=== PATIENT | female | born 1985 | race Native Hawaiian/Other Pacific Islander ===

== ENCOUNTER 2025-08-21 20:25 | Emergency (ER) | payer BC, SELFPAY ==
[2025-08-21 20:28] VITALS: BP 145/84
--- NOTE | 2025-08-21 22:37 | ED.GENMED ---
History of Present Illness
General
Chief Complaint: Allergic Reaction
Source: patient
Time Seen by Provider: 08/21/25 22:17
Nursing documentation reviewed up to this point in time: agreed with
History of Present Illness
History of Present Illness:
Note:
CHIEF COMPLAINT(S)
Rash and itching following a suspected insect bite.
HISTORY OF PRESENT ILLNESS
The patient is a 40-year-old female with a history of pre-diabetes who presented with a rash that began under her chin after she suspected an insect bite. The rash developed approximately two hours after attending her daughters birthday libertarian and
progressed to become red and itchy, spreading outward towards the lateral areas. The patient attempted to shower, thinking it might help, and took an oral dose of diphenhydramine 25 mg at 7:45 PM, but only mild improvement in symptoms was noted.
Upon returning from the libertarian, the rash appeared reduced but still visibly present and uncomfortable. She noted no recent changes in detergents or personal care products and reported being unsure of any specific allergen exposure. The patients
did use bleach to clean their shower, but she does not suspect that to be the cause.
SOCIAL DETERMINANTS AFFECTING HEALTH
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 No other significant social determinants affecting health were discussed.
PAST MEDICAL HISTORY
Diabetes mellitus, type unspecified.
REVIEW OF SYSTEMS
- Integumentary: Rash and itching noted on the skin, primarily under the chin and spreading laterally.
- ENT
No changes in detergent or personal care products; potential exposure to bleach fumes in the household.
PHYSICAL EXAM
General: Alert, no acute distress.
Skin: Erythematous patches noted on abdomen and torso, urticarial in appearance.
Head: Normocephalic, atraumatic.
Neck: Trachea midline, no lymphadenopathy noted.
Eye, Ears, Nose, Mouth, and Throat: Oral mucosa moist.
Cardiovascular: Normal peripheral perfusion, no edema.
Respiratory: Respirations are non-labored.
Gastrointestinal: Abdomen nondistended.
Back: Normal range of motion, normal alignment.
Musculoskeletal: Normal ROM, normal strength.
Neurological: Alert and oriented to person, place, time, and situation, no focal neurological deficit observed.
Psychiatric: Cooperative, appropriate mood & affect.
PROBLEM LIST
Acute:
- Rash and itching from a suspected insect bite.
Chronic:
- Pre-Diabetes
PLAN
- Administer another dose of diphenhydramine.
- Administer a dose of corticosteroids.
- Discharge with a prescription for prednisone and an epinephrine auto-injector for potential future allergic reactions.
- Monitor for symptom resolution and possible identification of the allergen.
DIFFERENTIAL DIAGNOSIS
The Differential Diagnosis includes, in no particular order and is not limited to:
1. Allergic reaction to insect bite
2. Contact dermatitis
3. Urticaria
4. Anaphylaxis (mild)
5. Dermatologic manifestation of a systemic condition
6. Drug reaction
7. Idiopathic angioedema
8. Atopic dermatitis
9. Chemical burn (e.g., from bleach)
10. Viral exanthem
Disposition:
SUMMARY OF ENCOUNTER
A 40-year-old female presented with an allergic reaction of unknown origin, possibly due to an insect bite. The symptoms included a rash and itching under the chin, spreading outward to lateral areas. The patient reported slight improvement after
taking diphenhydramine at home. Upon evaluation in the emergency department, she showed significant improvement.
DISPOSITION
The patient will be discharged home.
ASSESSMENT
The patient presented with a likely allergic reaction of unknown origin, potentially related to an insect bite.
PLAN
Administered diphenhydramine for symptomatic relief in the emergency department. Prescribed prednisone and an epinephrine auto-injector for potential future allergic reactions. The patient was advised to monitor for any recurrent or worsening
symptoms and to identify any potential allergens.
MEDICATION RECONCILIATION
- Administered diphenhydramine in the emergency department.
- Prescribed prednisone for follow-up treatment.
- Provided an epinephrine auto-injector for emergency use in case of future allergic episodes.
MEDICAL DECISION MAKING
-Number and Complexity of Problems Addressed: Chronic conditions affecting care include pre-diabetes. Differential diagnosis considered includes allergic reaction to insect bite, contact dermatitis, urticaria, anaphylaxis (mild), idiopathic
angioedema, atopic dermatitis, chemical irritation, viral exanthem.
-Data:
Category 2:
Clinical information included reviewing the current presentation, symptom resolution after diphenhydramine, and not attributing symptoms to recent chemical exposure (bleach).
-Risk:
Prescription medication was prescribed, including prednisone and an epinephrine auto-injector, emphasizing the need for monitoring potential allergies.
DIAGNOSIS
- Allergic reaction, unspecified (ICD-10: T78.40XA).
- Contact dermatitis due to unspecified cause (ICD-10: L23.9).
- Pre-diabetes (ICD-10: R73.03).
Phy Exam
Physical Exam
Physical Exam:
.
Course
Orders/Labs/Results
Orders:
Orders
08/21/25 22:35
Dexamethasone Pf [Decadron] 10 mg PO NOW STA
Diphenhydramine [Benadryl] 25 mg PO NOW STA
Vital Signs
Initial and Last Documented VS:
Initial Vital Signs
Temp Pulse Resp BP Pulse Ox
98.2 F 109 18 145/84 100
08/21/25 20:28 08/21/25 20:28 08/21/25 20:28 08/21/25 20:28 08/21/25 20:28
Last Documented Vital Signs
Temp Pulse Resp BP Pulse Ox
98.8 F 100 18 120/80 100
08/21/25 22:48 08/21/25 22:48 08/21/25 22:48 08/21/25 22:48 08/21/25 22:48
*Pulse Oximetry
SaO2: 100
Oxygen Mode of Delivery: Room air
Patient hypoxic: no
*Critical Care Note
Total Time (30-74mins, 75-104mins- exclusive of procedures): Not Applicable
ED Attending Note
-
Portions of this chart may have been created with voice recognition software.� Occasional wrong word or��sound alike� substitutions may have occurred due to the inherent limitations of voice recognition software.
Discharge Plan
Departure
Patient Disposition: Home (Routine Discharge)
Date of Disposition: 08/21/25
Time of Disposition: 23:11
Patient with high blood pressure during this ER visit?: Yes
Condition: Good
Discharge Problem:
Allergic reaction
Instructions: Hives (DC), Allergic reaction - ED (DC)
Prescriptions:
New
diphenhydramine HCl [Benadryl] 25 mg capsule
25 mg PO TID PRN (Reason: allergy symptoms) Qty: 14 0RF
prednisone 50 mg Tablet
50 mg PO DAILY Qty: 4 0RF
epinephrine [EpiPen] 0.3 mg/0.3 mL Auto-Injector
0.3 mg IM .STAT PRN (Reason: anaphylaxis) Qty: 1 0RF
Referrals:
David Montana MD [Family Provider, Family Practice]
Niecy Carranza MD [Consulting Staff, [facility]]
Activity Restrictions/Additional Instructions:
Thank You for choosing [facility].
It was a pleasure meeting you and taking part in your care. We hope for your continued healing and wellness.
Please read discharge instructions in their entirety. However, they are for general education and may not describe your exact diagnosis at discharge. Information on your ER visit and medical conditions were discussed with you along with appropriate
follow up information...
If indicated, please take your medications as instructed and indicated on discharge paperwork.
Please schedule a follow up appointment as directed. Call to schedule an appointment
Please return to the emergency department with ANY change in, persisting, or worsening of symptoms. If any of your symptoms do not improve, or persist, or become more severe within 6-12 hours, please return to the emergency department for further
care.
Please return to the emergency department if you develop a headache, neck pain/stiffness, fever greater than 100.4F, chest pain, shortness of breath, persistent nausea, vomiting, slurred speech, difficulty walking, numbness/tingling, weakness, signs
of infection or any other symptoms that are worrisome to you.
If you have any questions or concerns please do not hesitate to call the Hospital at .
Interventions
Interventions:
*Risk Screen - Suicide Last Done: 08/21/25 20:28
*General Assessment Last Done: 08/21/25 22:45
*Neglect/Abuse Screening Last Done: 08/21/25 20:28
*ED- Fall Risk Assessment Last Done: 08/21/25 22:45
*ED COVID-19 Vaccine History Last Done: 08/21/25 22:45
*ED Influenza Vaccine History Last Done: 08/21/25 22:45
ED- Cardiac Assessment Last Done: 08/21/25 22:48
ED- Pulmonary Assessment Last Done: 08/21/25 22:48
Discharge Date and Time
Print Language: TRISTANIAN
[2025-08-21 22:48] VITALS: BP 120/80
[2025-08-21] MEDS: DECADRON 10 MG PO (22:49)
[2025-08-21] MEDS: BENADRYL 25 MG PO (22:49)
== END 2025-08-21 23:22 | disposition home or self-care (01) ==
LOC: EMR 20:25
PROVIDERS: EMERGENCY PHYSICIAN Student in an Organized Health Care Education/Training Program; FAMILY PHYSICIAN Family Medicine
DX: T78.40XA Allergy, unspecified, initial encounter (principal); X58.XXXA Exposure to other specified factors, initial encounter; E11.9 Type 2 diabetes mellitus without complications
CPT/HCPCS: 99283